=== PATIENT | female | born 1990 | race Caucasian/White ===

== ENCOUNTER 2022-02-01 05:00 | Emergency (ER) | payer BC, SELFPAY ==
[2022-02-01 05:12] VITALS: BP 112/81; PULSE 87; RESP 18; TEMP 36.7; O2SAT 99; BMI 25.1
--- NOTE | 2022-02-01 05:29 | CRLHL7_ITS ---
For Patients: As a result of the Century Cures Act, medical imaging exams and procedure reports are released immediately into your electronic medical record. You may view this report before your referring provider. If you have questions, please contact your health care provider. INDICATION: Back pain TECHNIQUE: CT chest PE was acquired with 95 cc Isovue 370 IV contrast. COMPARISON: 12/08/2017. FINDINGS: Heart and vasculature: Contrast opacification of the pulmonary arterial tree is adequate. No sign of pulmonary embolism. Heart size is normal. Thoracic aorta and pulmonary artery are normal in caliber. Lungs and pleura: Lungs are clear. No suspicious nodules or infiltrates. No pleural effusions, pleural thickening, or pneumothorax. Lymph nodes/mediastinum: No mediastinal, hilar, or axillary adenopathy. Thyroid gland is unremarkable. Chest wall: No masses. Upper abdomen: No acute or significant findings. Bones: Unremarkable for age. IMPRESSION: No evidence of pulmonary embolism or other findings to explain pain. Please note that all CT scans at this facility use dose modulation, iterative reconstruction, and/or weight-based dosing when appropriate to reduce radiation dose to as low as reasonably achievable. Dictated by Hamilton Piedra MD @ 02/01/2022 6:37:18 AM (Electronically Signed)
--- NOTE | 2022-02-01 05:46 | ED.BACK ---
HPI - Back Pain/Injury General Chief Complaint: Back Injury/Pain Stated Complaint: Post surgical back pain Time Seen by Provider: 02/01/22 05:29 History of Present Illness HPI Narrative: Pt is a 31 year old woman who presents 5 days after panniculectomy with midthorasic back pain which has been present since discharge. No cough, fever, chills. Pain is severe and does not radiate. Pt has been treated with oxycodone post operatively for the pain but it is not helping. No lower extremity pain or swelling. No fever or chills. No postoperative abd pain. Pt has had no recent injuries and otherwise seems to be healling well. Pain is not affected by message. Decreased rom of the thorax noted due to tenderness. No history of PE. Related Data Home Medications Medication Instructions Recorded Confirmed acetaminophen 500 mg tablet 500 mg PO Q6H PRN 02/01/22 02/01/22 cetirizine 10 mg tablet (24Hour 10 mg PO DAILY PRN 02/01/22 02/01/22 Allergy) doxycycline hyclate 100 mg tablet 100 mg PO BID 02/01/22 02/01/22 Allergies Allergy/AdvReac Type Severity Reaction Status Date / Time amoxicillin [From Augmentin] AdvReac Rash Verified 02/01/22 05:57 clavulanic acid AdvReac Rash Verified 02/01/22 05:57 [From Augmentin] Review of Systems Status of ROS: Reports: 10 or more systems reviewed and unremarkable except as noted in History and below [facility] Surgical History (Updated 02/01/22 @ 05:50 by Heraclio Mcguire MD) S/P panniculectomy Social History Smoking Status: Never smoker How often do you have a drink containing alcohol: never AUDIT-C Alcohol total score: 0 Non-prescribed substance use: denies use Exam Narrative: Exam Narrative: EXAM GENERAL: Patient appears comfortable and well. EYES: No scleral icterus. ENT: Tympanic membranes and oropharynx normal. THYROID: no thyroid nodules or thyromegaly. LYMPH: No supraclavicular or cervical lymphadenopathy. SKIN: Visible skin seen during exam normal or with benign process only. EXT: No dependent lower extremity pedal edema. HEART: Regular rate and rhythm with no murmurs, rubs, or gallops. LUNGS: Clear to auscultation bilaterally with no crackles or wheezes. ABD: Soft, non tender, non distended. PSYCH: Good eye contact, speech is not pressured. No pain to palpation of the thorasic spine or posterior chest Post operative changes in the abd noted. No signs of infection Const: Vital Signs, click to edit/add: Vital Signs - 24 hr 02/01/22 05:12 Temperature 98.1 F Pulse Rate [Pulse Oximeter] 87 Respiratory Rate 18 Blood Pressure [Le ft Upper Arm] 112/81 Pulse Oximetry 99 Oxygen Delivery Me thod Room Air Course Course Hospital Course: Pt seen and examined. PE protocol CT scan ordered. Reevaluation(s) Reevaluation #1: CT of chest negative for PE or pneumothorax Time: 07:07 Vital Signs Vital signs: Initial Vital Signs Temperature 98.1 F 02/01/22 05:12 Temperature Source Temporal Artery Scan 02/01/22 05:12 Pulse Rate 87 02/01/22 05:12 Respiratory Rate 18 02/01/22 05:12 Blood Pressure 112/81 02/01/22 05:12 Blood Pressure Mean 91 02/01/22 05:12 Blood Pressure Position Semi-Fowlers 02/01/22 05:12 Pulse Oximetry 99 02/01/22 05:12 Oxygen Delivery Method 02/01/22 05:12 Vital Signs Temperature 98.1 F 02/01/22 05:12 Pulse Rate 87 02/01/22 05:12 Respiratory Rate 18 02/01/22 05:12 Blood Pressure 112/81 02/01/22 05:12 Pulse Oximetry 99 02/01/22 05:12 Oxygen Delivery Method 02/01/22 05:12 Temperature 98.1 F 02/01/22 05:12 Pulse Rate 87 02/01/22 05:12 Respiratory Rate 18 02/01/22 05:12 Blood Pressure 112/81 02/01/22 05:12 Pulse Oximetry 99 02/01/22 05:12 Oxygen Delivery Method 02/01/22 05:12 MDM - Back Pain/Injury MDM Narrative Medical decision making narrative: Pt presents 5 days after panniculectomy with thorasic back pain. No abd, pain fevers or dysuria. Pt has had no cough. CT of the chest negative for PE and Pneumothorax. Pt has oxycodone at home and will be discharged to rotate tylenol, motrin and oxycodone. Follow up with her surgeon or back to the ed if symptoms worsen. Differential Diagnosis Differential diagnosis: Likely thoracic back pain, AAA and discitis Discharge Plan Discharge Clinical Impression: Back pain Patient Disposition: Home, Self-Care Condition: Stable Instructions: Back Pain (ED) Additional Instructions: Ice Rotate Tylenol, Motrin and Oxycodone Follow up as needed Activity Level: No Restrictions Discharge Diet: Regular Prescriptions: No Action acetaminophen 500 mg tablet 500 mg PO Q6H PRN cetirizine [24Hour Allergy] 10 mg tablet 10 mg PO DAILY PRN doxycycline hyclate 100 mg tablet 100 mg PO BID Label Comments: TAKE 1 TABLET BY MOUTH TWICE A DAY FOR 7 DAYS Follow Up/Referrals: Radha Stanford MD [Primary Care Provider] - Stand Alone Forms: [employer] Info Instructions
[2022-02-01 07:21] VITALS: BP 124/77; PULSE 77; RESP 18; O2SAT 98
== END 2022-02-01 07:23 | disposition home or self-care (01) ==
PROVIDERS: Emergency Provider Internal Medicine; PCP Family Medicine
DX: M54.6 Pain in thoracic spine (principal)
CPT/HCPCS: 71260; 99283; 99284; Q9967